=== PATIENT | female | born 1995 | race Caucasian/White ===

== ENCOUNTER 2017-06-08 04:10 | Emergency (ER) | payer OTHER ==
[~2017-06-08] VITALS: Ht 172.7 cm; Wt 67.6 kg
[2017-06-08 04:10] VITALS: BP_SYST 139
--- NOTE | 2017-06-08 04:10 | NUR ---
Patient to [facility] for evaluation. Side rails up. Report given to AMY MARINO.
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
--- NOTE | 2017-06-08 04:15 | NUR ---
JACKIE Neville IN [facility] examining patient.
--- NOTE | 2017-06-08 04:22 | NUR ---
Written and verbal consent obtained from patient for blood alcohol, name and verified by patient. Disinfected patient's skin with BETADINE that did not contain alcohol or other volatile organic compound. Collected the blood from the subject named by venipuncture, in the presence of Officer Manuel HILLMAN #[id number]. Used a sterile, dry hypodermic needle and dry vacuum blood collection. The dry vacuum blood collection was supplied by the officer named above. Withdrew a specimen of blood from RIGHT AC of the subject named above. Inverted the blood tube several times to ensure that the preservative and anticoagulant were thoroughly mixed in the blood specimen. I initialed the blood tube label for identification. The labeled blood tube was handed directly to the Officer named above. The blood tube stopper remained in place while I had possession of the blood tube. The Officer placed tube into envelope and sealed it in my presence. Envelope initialed by myself and Officer named above. Patient tolerated well, bandage applied, and bleeding controlled.
[2017-06-08] MEDS ORDERED: ACETAMINOPHEN 500 MG TABLET PO ONE (05:00)
[2017-06-08] MEDS ORDERED: ACETAMINOPHEN 500 MG TABLET ONE (05:04)
[2017-06-08 05:10] VITALS: BP_SYST 139
--- NOTE | 2017-06-08 05:10 | NUR ---
Patient given written and verbal discharge instructions and verbalizes understanding. ER MD KAPADIA discussed with patient the results and treatment provided. Patient in stable condition. ID arm band removed. NO Rx given. Patient educated on pain management and to follow up with PMD. Pain Scale 2/10. Opportunity for questions provided and answered.
== END 2017-06-08 05:10 ==
LOC: SED 04:10
DX: M25.561 Pain in right knee (principal); F10.129 Alcohol abuse with intoxication, unspecified; V59.00XA Driver of pick-up truck or van injured in collision with unspecified motor vehicles in nontraffic accident, initial encounter; Y93.89 Activity, other specified; Y92.89 Other specified places as the place of occurrence of the external cause; Y99.8 Other external cause status
CPT/HCPCS: 73564; 99284